=== PATIENT | female | born 2000 | race Two or more races ===

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

== ENCOUNTER 2018-01-27 23:59 | Emergency (ER) | payer MEDICAID | END 2018-01-28 01:50 | disposition left against medical advice (07) | LOC: ER 23:59 | DX: Z53.21 Procedure and treatment not carried out due to patient leaving prior to being seen by health care provider (principal) ==

== ENCOUNTER 2018-01-28 09:35 | Emergency (ER) | payer MEDICAID ==
[2018-01-28] MEDS ORDERED: ACETAMINOPHEN SOLN 325 MG/10.15 ML UDCUP PO ONE (10:09)
[2018-01-28] MEDS ORDERED: KETOROLAC TROMETHAMINE INJ/PF 30 MG/1 ML SDV IV ONE (10:19)
[2018-01-28] MEDS ORDERED: NORMAL SALINE 1000 ML 1,000 ML IV ONE (10:19)
[2018-01-28] MEDS ORDERED: DEXAMETHASONE SOD PHOS INJ 10 MG/1 ML VIAL IV ONE (10:19)
--- NOTE | 2018-01-28 10:20 | ER Document Report ---
HPI - HPI Patient complains to provider of: Fever, sore throat Onset: Other - 3 days Onset/Duration: Persistent Quality of pain: Achy Pain Level: 2 Context: Patient presents complaining of fever body aches sore throat and ear pain. Patient does report mild cough. Patient denies any nausea vomiting or diarrhea. Patient complains of sore throat and states she has not been drinking as much due to pain. Associated Symptoms: Body/muscle aches, Chills, Nonproductive cough, Earache, Fever, Sore throat. denies: Nausea, Vomiting Exacerbated by: Denies Relieved by: Denies Similar symptoms previously: No Recently seen / treated by doctor: No - ROS ROS below otherwise negative: Yes Systems Reviewed and Negative: Yes All other systems reviewed and negative - CONSTITUTIONAL Constitutional: REPORTS: Fever, Chills - EENT EENT: REPORTS: Sore Throat - x 3 days, Ear Pain - NEURO Neurology: REPORTS: Headache - r/t sinus pressure. DENIES: Weakness, Vision blurred, Dizzinesss / Vertigo - RESPIRATORY Respiratory: REPORTS: Coughing - x 3 days - GASTROINTESTINAL Gastrointestinal: DENIES: Abdominal Pain, Black / Bloody Stools - URINARY Urinary: DENIES: Dysuria, Urgency, Frequency - REPRODUCTIVE Reproductive: DENIES: : - MUSCULOSKELETAL Musculoskeletal: REPORTS: Extremity pain - generalized body - DERM Skin Color: Normal Skin Problems: None Past Medical History - General Information source: Patient - Social History Smoking Status: Current Every Day Smoker Chew tobacco use (# tins/day): No Smoking Education Provided: Yes Frequency of alcohol use: Social Drug Abuse: None Occupation: None Lives with: Family Family History: Reviewed & Not Pertinent Patient has suicidal ideation: No Patient has homicidal ideation: No Neurological Medical History: Reports: Hx Seizures Renal/ Medical History: Denies: Hx Peritoneal Dialysis Musculoskeletal Medical History: Reports Hx Musculoskeletal Trauma - right arm and left leg Psychiatric Medical History: Reports: Hx Bipolar Disorder Traumatic Medical History: Reports: Hx Fractures Past Surgical History: Reports: Hx Orthopedic Surgery - arm and leg - Immunizations Immunizations up to date: Yes Hx Diphtheria, Pertussis, Tetanus Vaccination: Yes Vertical Provider Document - CONSTITUTIONAL Agree With Documented VS: Yes Exam Limitations: No Limitations General Appearance: WD/WN, No Apparent Distress - INFECTION CONTROL TRAVEL OUTSIDE OF THE [place] IN LAST 30 DAYS: No - HEENT HEENT: Atraumatic, Normocephalic, Pharyngeal Tenderness, Pharyngeal Erythema. negative: Pharyngeal Exudate - NECK Neck: Lymphadenopathy-Left, Lymphadenopathy-Right - RESPIRATORY Respiratory: Breath Sounds Normal, No Respiratory Distress, Chest Non-Tender - CARDIOVASCULAR Cardiovascular: Regular Rhythm, No Murmur, Tachycardia - GI/ABDOMEN Gastrointestinal: Abdomen Soft - BACK Back: Normal Inspection - MUSCULOSKELETAL/EXTREMETIES Musculoskeletal/Extremeties: MAEW, FROM - NEURO Level of Consciousness: Awake, Alert, Appropriate Motor/Sensory: No Motor Deficit - DERM Integumentary: Warm, Dry, No Rash Course - Re-evaluation Re-evalutation: 01/28/18 11:57 Patient with positive strep pharyngitis, 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 Vital signs normalized, no tachycardia at this time. Good return precautions given. - Laboratory Laboratory results interpreted by me: 01/28/18 18:35 Labs- Entire Visit 01/28/18 09:55 Group A Strep Rapid POSITIVE Discharge - Discharge Clinical Impression: Strep throat Fever Qualifiers: Fever type: unspecified Qualified Code(s): R50.9 - Fever, unspecified Condition: Stable Disposition: HOME, SELF-CARE Instructions: Clindamycin ([facility]), Fever ([facility]), Intravenous (IV) Fluids ([facility]), Strep Throat ([facility]) Additional Instructions: Return immediately for any new or worsening symptoms Followup with your primary care provider, call tomorrow to make a followup appointment Increase oral fluids and stay well-hydrated Prescriptions: Clindamycin HCl [Cleocin Hcl] 300 mg PO QID #28 capsule Naproxen [Naprosyn 250 Nmg Tablet] 1 tab PO BID #14 tablet Forms: Smoking Cessation Education Referrals: LANA LITTLEJOHN DO [Primary Care Provider] - Follow up as needed
[2018-01-28 11:50] VITALS: BP 132/107
[2018-01-28] MEDS ORDERED: CLINDAMYCIN HCL 150 MG CAPSULE PO ONE (11:57)
[2018-01-28] MEDS ORDERED: FLUCONAZOLE 100 MG TABLET PO ONE (12:20)
== END 2018-01-28 12:32 | disposition home or self-care (01) ==
LOC: ER 09:35
DX: J02.0 Streptococcal pharyngitis (principal); R50.9 Fever, unspecified; M79.10 Myalgia, unspecified site; H92.09 Otalgia, unspecified ear; R05 Cough; F17.200 Nicotine dependence, unspecified, uncomplicated
CPT/HCPCS: 99283; 96361; 96374; 96375; 87880; J3490 ×3; J1885; J7030; J1100

== ENCOUNTER 2018-04-21 00:02 | Emergency (ER) | payer MEDICAID ==
[2018-04-21 00:57] VITALS: BP 112/60
--- NOTE | 2018-04-21 02:43 | ER Document Report ---
ED General - General Chief Complaint: Skin Sore(s) Stated Complaint: SKIN PROBLEM Time Seen by Provider: 04/21/18 02:32 Mode of Arrival: Ambulatory Information source: Patient TRAVEL OUTSIDE OF THE [place] IN LAST 30 DAYS: No - Related Data Allergies/Adverse Reactions: amoxicillin trihydrate [From Augmentin] Allergy (Verified 01/28/18 09:37) unk clarithromycin [From Biaxin] Allergy (Verified 01/28/18 09:37) unk Potassium Clavulanate * [From Augmentin] Allergy (Verified 01/28/18 09:37) unk Past Medical History - Social History Smoking Status: Unknown if Ever Smoked Family History: Reviewed & Not Pertinent Patient has suicidal ideation: No Patient has homicidal ideation: No Neurological Medical History: Reports: Hx Seizures Renal/ Medical History: Denies: Hx Peritoneal Dialysis Musculoskeletal Medical History: Reports Hx Musculoskeletal Trauma - right arm and left leg Psychiatric Medical History: Reports: Hx Bipolar Disorder Traumatic Medical History: Reports: Hx Fractures Past Surgical History: Reports: Hx Orthopedic Surgery - arm and leg - Immunizations Immunizations up to date: Yes Hx Diphtheria, Pertussis, Tetanus Vaccination: Yes Physical Exam - Vital signs Vitals: Temp Pulse Resp BP Pulse Ox 97.3 F 68 16 112/60 100 04/21/18 00:55 04/21/18 00:55 04/21/18 00:55 04/21/18 00:55 04/21/18 00:55 Course - Vital Signs Vital signs: Temp Pulse Resp BP Pulse Ox 97.3 F 68 16 112/60 100 04/21/18 00:55 04/21/18 00:55 04/21/18 00:55 04/21/18 00:55 04/21/18 00:55 Discharge - Discharge Clinical Impression: Chemical burn, Cold sore Condition: Good Disposition: HOME, SELF-CARE Instructions: [place] ([facility]), Soap Cleansing ([facility]) Prescriptions: Famciclovir [Famvir] 500 mg PO TID #15 tablet Forms: Return to School Referrals: LANA LITTLEJOHN DO [Primary Care Provider] - Follow up as needed
== END 2018-04-21 03:16 | disposition home or self-care (01) ==
LOC: ER 00:02
DX: T49.0X1A Poisoning by local antifungal, anti-infective and anti-inflammatory drugs, accidental (unintentional), initial encounter (principal); T28.5XXA Corrosion of mouth and pharynx, initial encounter; L98.9 Disorder of the skin and subcutaneous tissue, unspecified; B00.1 Herpesviral vesicular dermatitis
CPT/HCPCS: 99283

== ENCOUNTER 2018-04-29 18:43 | Emergency (ER) | payer MEDICAID ==
[2018-04-29 19:32] VITALS: BP 101/66
== END 2018-04-29 19:45 | disposition left against medical advice (07) ==
LOC: ER 18:43
DX: Z53.21 Procedure and treatment not carried out due to patient leaving prior to being seen by health care provider (principal)

== ENCOUNTER 2018-04-29 23:56 | Inpatient (IN) | payer MEDICAID ==
[2018-04-30] MEDS ORDERED: ONDANSETRON HCL INJ/PF 4 MG/2 ML SDV IV ONE (01:15)
[2018-04-30 02:02] LABS: HEMOGLOBIN 8.5 g/dL (12.0-15.5); MEAN CORPUSCULAR HGB CONC 30.2 g/dL (32.0-36.0); PLATELET COUNT 286 10^3/uL (150-450); RED CELL DISTRIBUTION WIDTH 16.9 % (11.5-14.0)
[2018-04-30 02:17] LABS: ALANINE AMINOTRANSFERASE 18 U/L (9-52); ALBUMIN 4.9 g/dL (3.5-5.0); ALKALINE PHOSPHATASE 62 U/L (38-126); ANION GAP 15 (5-19); ASPARTATE AMINO TRANSFERASE 18 U/L (14-36); BILIRUBIN,DIRECT 0.2 mg/dL (0.0-0.4); BILIRUBIN,TOTAL 0.7 mg/dL (0.2-1.3); BLOOD UREA NITROGEN 6 mg/dL (7-20); CARBON DIOXIDE 16 mmol/L (22-30); CHLORIDE 113 mmol/L (98-107); GLUCOSE 117 mg/dL (75-110); POTASSIUM 3.7 mmol/L (3.6-5.0); SODIUM 144.2 mmol/L (137-145); TOTAL PROTEIN 7.6 g/dL (6.3-8.2)
[2018-04-30 02:31] LABS: ABSOLUTE LYMPHOCYTES# (MANUAL) 0.9 10^3/uL (0.5-4.7); ABSOLUTE MONOCYTES # (MANUAL) 0.4 10^3/uL (0.1-1.4); ABSOLUTE NEUTROPHILS# (MANUAL) 6.6 10^3/uL (1.7-8.2); BASOPHILS % (MANUAL) 0 % (0-2); EOSINOPHILS % (MANUAL) 1 % (0-6); LYMPHOCYTES % (MANUAL) 11 % (13-45); MONOCYTES % (MANUAL) 5 % (3-13); POLYCHROMASIA SLIGHT; SEGMENTED NEUTROPHILS % (MAN) 83 % (42-78); TOTAL CELLS COUNTED 100; TOXIC GRANULATION 1+
[2018-04-30 02:32] LABS: ANISOCYTOSIS 1+; BURR CELLS 2+; HELMET CELLS SLIGHT; OVALOCYTES 1+; PLATELET CLUMPS PRESENT; PLATELET COMMENT ADEQUATE; PLATELET LARGE PRESENT; POIKILOCYTOSIS 2+; SCHISTOCYTES 1+
[2018-04-30 02:33] LABS: MEAN CORPUSCULAR VOLUME 60 fl (80-97)
[2018-04-30 02:40] LABS: APPEARANCE,URINE CLOUDY; BILIRUBIN,URINE NEGATIVE (NEGATIVE); COLOR,URINE YELLOW; GLUCOSE, URINE NEGATIVE (NEGATIVE); KETONES,URINE 80 mg/dL (NEGATIVE); LEUKOCYTE ESTERASE,URINE MODERATE (NEGATIVE); NITRITE,URINE NEGATIVE (NEGATIVE); PROTEIN,URINE >=500 mg/dL (NEGATIVE); URINE SPECIFIC GRAVITY 1.026; UROBILINOGEN,URINE NEGATIVE mg/dL (<2.0)
[2018-04-30] MEDS ORDERED: PROMETHAZINE HCL INJ 25 MG/1 ML VIAL IM ONE (02:58)
[2018-04-30] MEDS ORDERED: RINGERS SOLUTION,LACTATED 1,000 ML IV ONE (02:58)
[2018-04-30] MEDS ORDERED: CEFTRIAXONE INJ 1000 MG VIAL IV ONE (02:59)
--- NOTE | 2018-04-30 03:22 | ER Document Report ---
ED General - General Chief Complaint: Abdominal Pain Stated Complaint: ABDOMINAL PAIN,NAUSEA,VOMITING Time Seen by Provider: 04/30/18 02:50 Notes: Patient is a 18-year-old female presents with abdominal pain and vomiting. She says that she started having dull pain earlier and then followed with vomiting. She says that her pain is related to ruptured ovarian cyst. I asked her how she knows for sure is related to ruptured ovarian cyst and she says "because I know". She says the pain is a burning type pain going up and down the central p ortion of her abdomen. She says the pain is improved sniffily but she still very nauseous. She denies any marijuana use. No drug use. No alcohol use. No fevers. No dysuria. No diarrhea. No blood in her stools. No other complaints at this time. TRAVEL OUTSIDE OF THE [place] IN LAST 30 DAYS: No - Related Data Allergies/Adverse Reactions: No Known Allergies Allergy (Unverified 04/29/18 18:51) Past Medical History - Social History Smoking Status: Never Smoker Frequency of alcohol use: None Drug Abuse: None Family History: Reviewed & Not Pertinent Neurological Medical History: Reports: Hx Seizures Renal/ Medical History: Denies: Hx Peritoneal Dialysis Musculoskeletal Medical History: Reports Hx Musculoskeletal Trauma - right arm and left leg Psychiatric Medical History: Reports: Hx Bipolar Disorder Traumatic Medical History: Reports: Hx Fractures Past Surgical History: Reports: Hx Orthopedic Surgery - arm and leg - Immunizations Immunizations up to date: Yes Hx Diphtheria, Pertussis, Tetanus Vaccination: Yes Review of Systems - Review of Systems Notes: My Normal Review Basic REVIEW OF SYSTEMS: CONSTITUTIONAL : Denies fever, chills, or sweats. Denies recent illness. EENT: Denies eye, ear, throat, or mouth pain or symptoms. Denies nasal or sinus congestion. RESPIRATORY: Denies cough, cold, or chest congestion. Denies shortness of breath, difficulty breathing, or wheezing. GASTROINTESTINAL: Mid abdominal pain with vomiting. GENITOURINARY: Denies difficulty urinating, painful urination, burning, frequency, or blood in urine. FEMALE GENITOURINARY: Denies vaginal bleeding, abnormal or irregular periods. LMP: MUSCULOSKELETAL: Denies neck or back pain or joint pain or swelling. SKIN: Denies rash or skin lesions. NEUROLOGICAL: Denies altered mental status or loss of consciousness. Denies headache. Denies weakness or paralysis or loss of use of either side. Denies problems with gait or speech. Denies sensory or motor loss. ALL OTHER SYSTEMS REVIEWED AND NEGATIVE. Physical Exam - Vital signs Vitals: Temp Pulse Resp BP Pulse Ox 98.9 F 75 18 128/66 H 100 04/29/18 23:56 04/29/18 23:56 04/29/18 23:56 04/29/18 23:56 04/29/18 23:56 - Notes Notes: General Appearance: Well nourished, alert, cooperative, no acute distress, no obvious discomfort. Vitals: reviewed, See vital signs table. Head: no swelling or tenderness to the head Eyes: PERRL, EOMI, Conjuctiva clear Mouth: No decreasd moisture Lungs: No wheezing, No rales, No rhonci, No accessory muscle use, good air exchange bilaterally. Heart: Normal rate, Regular rythm, No murmur, no rub Abdomen: Normal BS, soft, No rigidity, is very hard to get a good exam on the p atient. She says that her pain is improved however she would not let me touch her abdomen. Every time I go to touch her abdomen she grabs my hand and says it will hurt. I am eventually able to push on her abdomen. She yells at me before my hand even touches her abdomen is really difficult to tell how much pain she has. Abdomen is very soft and not rigid. Extremities: strength 5/5 in all extremities, good pulses in all extremities, no swelling or tenderness in the extremities, no edema. Skin: warm, dry, appropriate color, no rash Neuro: speech clear, oriented x 3, normal affect, responds appropriately to questions. Course - Re-evaluation Re-evalutation: 04/30/18 03:59 On reevaluation patient is feeling much improved after the Phenergan. We will give her another 500 mL's lactated Ringer's to help fully rehydrate her being does suspect some significant dehydration due to her vomiting based on her metabolic acidosis. Patient is agreeable to this. 04/30/18 05:13 I went to discharge the patient. Should she start to move around in bed she started get very nauseous again and started to dry heaves and gagging again. Fortunately patient's nausea is not under control as she is feeling perfectly still. I suspect that she may have cyclic vomiting syndrome from marijuana use. Her urine shows some signs of infection but this could just be contaminant from her being on her menstrual period. I still cover in case because there is a significant white blood cells. I will send her urine for culture. She has sign ificant amount of metabolic acidosis on chemistry panel and therefore I do not feel comfortable sending her home when she still cannot taken p.o. fluids. Will contact hospitalist for consideration for admission. 04/30/18 06:31 Spoke to the hospitalist, Dr. Petersen, agrees to evaluate the patient for admission. Dictation of this chart was performed using voice recognition software; therefore, there may be some unintended grammatical errors. - Vital Signs Vital signs: Temp Pulse Resp BP Pulse Ox 98.9 F 75 20 108/72 100 04/29/18 23:56 04/29/18 23:56 04/30/18 06:00 04/30/18 05:01 04/30/18 06:00 - Laboratory Result Diagrams: 04/30/18 01:45 04/30/18 01:45 Laboratory results interpreted by me: 04/30/18 04/30/18 04/30/18 01:45 01:45 02:15 Hgb 8.5 L Hct 28.0 L MCV 60 L MCH 18.0 L MCHC 30.2 L RDW 16.9 H Seg Neuts % (Manual) 83 H Lymphocytes % (Manual) 11 L Chloride 113 H Carbon Dioxide 16 L BUN 6 L Glucose 117 H Urine Protein >=500 H Urine Ketones 80 H Urine Blood LARGE H Ur Leukocyte Esterase MODERATE H Discharge - Discharge Clinical Impression: Metabolic acidosis Intractable vomiting Qualifiers: Vomiting type: cyclical vomiting Nausea presence: with nausea Qualified Code(s): G43.A1 - Cyclical vomiting, intractable Condition: Stable Disposition: ADMITTED OBSERVATION Admitting Provider: Hospitalist Unit Admitted: Medical Floor
[2018-04-30 03:49] LABS: URINE AMPHETAMINES SCREEN NEGATIVE; URINE BARBITURATES SCREEN NEGATIVE; URINE BENZODIAZEPINES SCREEN NEGATIVE; URINE COCAINE SCREEN NEGATIVE; URINE MARIJUANA (THC) SCREEN UNCONFIRMED POSITIVE; URINE METHADONE SCREEN NEGATIVE; URINE PHENCYCLIDINE SCREEN NEGATIVE
[2018-04-30] MEDS ORDERED: RINGERS SOLUTION,LACTATED 500 ML IV ONE (03:58)
[2018-04-30] MEDS ORDERED: NORMAL SALINE 500 ML IV ONE (03:58)
[2018-04-30] MEDS ORDERED: METOCLOPRAMIDE HCL INJ/PF 10 MG/2 ML SDV IV ONE (05:09)
--- NOTE | 2018-04-30 09:21 | EKG REPORT ---
SEVERITY:- BORDERLINE ECG - SINUS RHYTHM SHORT NM INTERVAL, ACCELERATED AV CONDUCTION MINIMAL ST DEPRESSION, INFERIOR LEADS BORDERLINE PROLONGED QT INTERVAL : Confirmed by: Tk Gresham 30-Apr-2018 09:21:23
[2018-04-30] MEDS ORDERED: ONDANSETRON 4 MG TAB.RAPDIS PO PRN (11:31)
[2018-04-30] MEDS ORDERED: MAGNESIUM HYDROXIDE SUSP 30 ML UDCUP PO PRN (11:31)
[2018-04-30] MEDS ORDERED: TEMAZEPAM 7.5 MG CAPSULE PO PRN (11:31)
[2018-04-30] MEDS ORDERED: ACETAMINOPHEN 325 MG TABLET PO PRN (11:31)
[2018-04-30] MEDS ORDERED: IPRATROPIUM/ALBUTEROL 0.5-2.5 MG/3 ML AMPUL NEB PRN (11:31)
--- NOTE | 2018-04-30 11:52 | PDOC H&P ---
History of Present Illness Admission Date/PCP: 04/30/18 06:37 Patient complains of: Nausea and vomiting History of Present Illness: SANJAY BUTLER is a 18 year old female Patient presents emergency room with complaints of intractable nausea and vomiting. She also complained of abdominal pain. Patient thinks that she may have a ruptured ovarian cyst she says she has had one before. She is noted to have hematuria however patient is currently on her.. She denies any prior history of kidney stones. She denies any fever or diarrhea chest pain or any other pertinent symptoms. Patient also found to have positive marijuana on her drug screen Past Medical History Medical History: None Neurological Medical History: Reports: Seizures Psychiatric Medical History: Reports: Bipolar Disorder Past Surgical History Past Surgical History: Reports: Orthopedic Surgery - arm and leg Social History Information Source: Patient Smoking Status: Never Smoker Frequency of Alcohol Use: Rare Drugs: Marijuana - Advance Directive Resuscitation Status: Full Code Family History Family History: Reviewed & Not Pertinent Parental Family History Reviewed: Yes Children Family History Reviewed: Yes Sibling(s) Family History Reviewed.: Yes Medication/Allergy Home Medications: No Home Medications 04/30/18 Allergies/Adverse Reactions: No Known Allergies Allergy (Unverified 04/29/18 18:51) Review of Systems All systems: reviewed and no additional remarkable complaints except as stated Physical Exam Vital Signs: Temp Pulse Resp BP Pulse Ox 99.3 F 59 L 18 102/48 L 96 04/30/18 09:01 04/30/18 09:01 04/30/18 09:01 04/30/18 09:01 04/30/18 09:01 Intake & Output 04/29/18 04/30/18 05/01/18 06:59 06:59 06:59 Intake Total 1500 Balance 1500 Weight 43.091 kg 41.4 kg General appearance: PRESENT: no acute distress, thin Head exam: PRESENT: atraumatic, normocephalic Eye exam: PRESENT: conjunctiva pink, EOMI, PERRLA. ABSENT: scleral icterus Ear exam: PRESENT: normal external ear exam Mouth exam: PRESENT: moist, tongue midline Neck exam: ABSENT: carotid bruit, JVD, lymphadenopathy, thyromegaly Respiratory exam: PRESENT: clear to auscultation garret. ABSENT: rales, rhonchi, wheezes Cardiovascular exam: PRESENT: RRR. ABSENT: diastolic murmur, rubs, systolic murmur Pulses: PRESENT: normal dorsalis pedis pul Vascular exam: PRESENT: normal capillary refill GI/Abdominal exam: PRESENT: normal bowel sounds, soft. ABSENT: distended, guarding, mass, organolmegaly, rebound, tenderness Rectal exam: PRESENT: deferred Extremities exam: PRESENT: full ROM. ABSENT: calf tenderness, clubbing, pedal edema Neurological exam: PRESENT: alert, awake, oriented to person, oriented to place, oriented to time, oriented to situation, CN II-XII grossly intact. ABSENT: motor sensory deficit Psychiatric exam: PRESENT: appropriate affect, normal mood. ABSENT: homicidal ideation, suicidal ideation Skin exam: PRESENT: dry, intact, warm. ABSENT: cyanosis, rash Results Laboratory Results: 04/30/18 01:45 04/30/18 01:45 04/30/18 04/30/18 04/30/18 01:45 01:45 02:15 WBC 8.0 RBC 4.70 Hgb 8.5 L Hct 28.0 L MCV 60 L MCH 18.0 L MCHC 30.2 L RDW 16.9 H Plt Count 286 Seg Neutrophils % Not Reportable Lymphocytes % Not Reportable Monocytes % Not Reportable Eosinophils % Not Reportable Basophils % Not Reportable Absolute Neutrophils Not Reportable Absolute Lymphocytes Not Reportable Absolute Monocytes Not Reportable Absolute Eosinophils Not Reportable Absolute Basophils Not Reportable Sodium 144.2 Potassium 3.7 Chloride 113 H Carbon Dioxide 16 L Anion Gap 15 BUN 6 L Creatinine 0.55 Est GFR ( Amer) > 60 Est GFR (Non-Af Amer) > 60 Glucose 117 H Calcium 10.0 Total Bilirubin 0.7 AST 18 ALT 18 Alkaline Phosphatase 62 Total Protein 7.6 Albumin 4.9 Urine Color YELLOW Urine Appearance CLOUDY Urine pH 8.0 Ur Specific [place] 1.026 Urine Protein >=500 H Urine Glucose (UA) NEGATIVE Urine Ketones 80 H Urine Blood LARGE H Urine Nitrite NEGATIVE Ur Leukocyte Esterase MODERATE H Urine WBC (Auto) 21 Urine RBC (Auto) >182 Assessment & Plan - Diagnosis (1) Microcytic anemia Is this a current diagnosis for this admission?: Yes Plan: Obtain iron studies (2) Hematuria Qualifiers: Hematuria type: unspecified type Qualified Code(s): R31.9 - Hematuria, unspecified (3) Intractable vomiting Qualifiers: Vomiting type: cyclical vomiting Nausea presence: with nausea Qualified Code(s): G43.A1 - Cyclical vomiting, intractable Is this a current diagnosis for this admission?: Yes Plan: Possibly from THC use. Anti-emetics, hot shower and abstinence (4) Metabolic acidosis Is this a current diagnosis for this admission?: Yes (5) Protein-calorie malnutrition, severe Is this a current diagnosis for this admission?: Yes Plan: Patient is severely underweight. She will need nutrition evaluation and encouragement to eat - Time Time Spent: 50 to 70 Minutes Critical Time spent with patient: Less than 15 minutes Medications reviewed and adjusted accordingly: Yes Anticipated discharge: Home Within: within 24 hours - Inpatient Certification Based on my medical assessment, after consideration of the patient's comorbidities, presenting symptoms, or acuity I expect that the services needed warrant INPATIENT care.: Yes Medical Necessity: Need For IV Fluids
[2018-04-30] MEDS: RINGERS SOLUTION,LACTATED 1,000 ML IV PRN (12:41)
[2018-04-30] MEDS: FAMOTIDINE INJ/PF 20 MG/2 ML SDV IV SCH ×2 (12:41→21:54)
[2018-04-30] MEDS: ENOXAPARIN SODIUM INJ 40 MG/0.4 ML DISP.SYRIN SUBCUT SCH (14:00)
[2018-04-30] MEDS ORDERED: PROMETHAZINE HCL 25 MG TABLET PO ONE (20:45)
[2018-05-01] MEDS: RINGERS SOLUTION,LACTATED 1,000 ML IV PRN (05:32)
[2018-05-01 07:11] LABS: ABSOLUTE RETICS # 0.067 10^6/uL (0.028-0.122); HEMATOCRIT 24.8 % (36.0-47.0); MEAN CORPUSCULAR HEMOGLOBIN 18.2 pg (27.0-33.4); MEAN CORPUSCULAR VOLUME 59 fl (80-97); PLATELET COUNT 259 10^3/uL (150-450); RED BLOOD COUNT 4.23 10^6/uL (3.72-5.28); RED CELL DISTRIBUTION WIDTH 17.4 % (11.5-14.0); RETICULOCYTE COUNT (AUTO) 1.58 % (0.66-2.85)
[2018-05-01 07:30] LABS: ANION GAP 10 (5-19); BLOOD UREA NITROGEN 6 mg/dL (7-20); CALCIUM 9.3 mg/dL (8.4-10.2); CARBON DIOXIDE 21 mmol/L (22-30); CHLORIDE 107 mmol/L (98-107); GLUCOSE 91 mg/dL (75-110); IRON(TIBC) 13.2 ug/dL (37-170); POTASSIUM 3.9 mmol/L (3.6-5.0); SODIUM 138.1 mmol/L (137-145)
[2018-05-01 07:59] LABS: HEMOGLOBIN 7.7 g/dL (12.0-15.5)
[2018-05-01 08:05] LABS: FERRITIN 3.78 ng/mL (6.2-137.0)
[2018-05-01 08:45] LABS: FOLATE 7.88 ng/mL (>2.76)
--- NOTE | 2018-05-01 09:18 | RADIOLOGY REPORT (SQ) ---
EXAM DESCRIPTION: U/S NON-OB PELVIS W/O DOP COMPLETED DATE/TIME: 05/01/2018 7:50 am REASON FOR STUDY: ? ovarian cyst, abdominal pain COMPARISON: None. TECHNIQUE: Dynamic and static grayscale images acquired of the pelvis via transabdominal approach an d recorded on PACS. Additional selected color Doppler and spectral images recorded. LIMITATIONS: Midline bowel gas, limited patient cooperation FINDINGS: UTERUS: Contour normal. No mass. Uterus is 7 x 5 x 4 cm in size ENDOMETRIAL STRIPE: No focal or generalized thickening. No masses. Endometrium 5 mm in thickness CERVIX: No nabothian cysts. Closed, 3 cm in length. RIGHT OVARY AND DOPPLER: Normal size, 2.8 x 2.6 x 2.2 cm. No worrisome masses. Normal arterial vascul ar flow without evidence for torsion. LEFT OVARY AND DOPPLER: Not visualized due to limited acoustic window from pelvic bowel gas. FREE FLUID: None noted. OTHER: No other significant finding. IMPRESSION: NONVISUALIZATION LEFT OVARY AND ADNEXA. OTHERWISE, UNREMARKABLE PELVIC ULTRASOUND BY TRANSABDOMINAL TECHNIQUE. TECHNICAL DOCUMENTATION: JOB ID: [id number] [employer]- All Rights Reserved Reading location - IP/workstation name: [email or web address]
[2018-05-01] MEDS ORDERED: RINGERS SOLUTION,LACTATED 1,000 ML IV PRN (09:20)
[2018-05-01] MEDS ORDERED: IRON SUCROSE COMPLEX INJ/PF 100 MG/5 ML SDV IV ONE (09:21)
[2018-05-01] MEDS: FAMOTIDINE INJ/PF 20 MG/2 ML SDV IV SCH ×2 (10:35→22:20)
[2018-05-01] MEDS: PROMETHAZINE HCL INJ 25 MG/1 ML VIAL IV PRN (10:35)
[2018-05-01] MEDS: ENOXAPARIN SODIUM INJ 40 MG/0.4 ML DISP.SYRIN SUBCUT SCH ×2 (10:36→11:04)
[2018-05-01] MEDS: CEFTRIAXONE 1 GM/D5W RTU 1 GM/50 ML RTUPB IV SCH (10:42)
[2018-05-01] MEDS ORDERED: IRON SUCROSE COMPLEX 200 MG in NORMAL SALINE 100 ML IV ONE (12:00)
--- NOTE | 2018-05-01 13:48 | PDOC PROGRESS REPORT ---
Subjective Progress Note for:: 05/01/18 Subjective:: Patient still having some occasional vomiting. She denies any dysuria or frequency. Urine culture noted to be positive yielding gram-negative rods. Patient denies any vaginal discharge. Reason For Visit: INTRACTABLE NAUSEA AND VOMITING,DEHYDRATION Physical Exam Vital Signs: Temp Pulse Resp BP Pulse Ox 98.5 F 68 12 110/66 100 05/01/18 08:36 05/01/18 12:30 05/01/18 12:30 05/01/18 08:36 05/01/18 12:30 Intake & Output 04/30/18 05/01/18 05/02/18 06:59 06:59 06:59 Intake Total 1500 1000 Balance 1500 1000 Weight 43.091 kg 40.6 kg General appearance: PRESENT: no acute distress, thin Head exam: PRESENT: atraumatic, normocephalic Eye exam: PRESENT: conjunctiva pink, EOMI, PERRLA. ABSENT: scleral icterus Ear exam: PRESENT: normal external ear exam Mouth exam: PRESENT: moist, tongue midline Neck exam: ABSENT: carotid bruit, JVD, lymphadenopathy, thyromegaly Respiratory exam: PRESENT: clear to auscultation garret. ABSENT: rales, rhonchi, wheezes Cardiovascular exam: PRESENT: RRR. ABSENT: diastolic murmur, rubs, systolic mur mur Pulses: PRESENT: normal dorsalis pedis pul Vascular exam: PRESENT: normal capillary refill GI/Abdominal exam: PRESENT: normal bowel sounds, soft. ABSENT: distended, guarding, mass, organolmegaly, rebound, tenderness Rectal exam: PRESENT: deferred Extremities exam: PRESENT: full ROM. ABSENT: calf tenderness, clubbing, pedal edema Neurological exam: PRESENT: alert, awake, oriented to person, oriented to place, oriented to time, oriented to situation, CN II-XII grossly intact. ABSENT: motor sensory deficit Psychiatric exam: PRESENT: appropriate affect, normal mood. ABSENT: homicidal ideation, suicidal ideation Skin exam: PRESENT: dry, intact, warm. ABSENT: cyanosis, rash Results Laboratory Results: 05/01/18 06:32 05/01/18 06:32 05/01/18 05/01/18 06:32 06:32 WBC 8.0 RBC 4.23 Hgb 7.7 L Hct 24.8 L MCV 59 L MCH 18.2 L MCHC 31.0 L RDW 17.4 H Plt Count 259 Retic Count (auto) 1.58 Absolute Retic 0.067 Sodium 138.1 Potassium 3.9 Chloride 107 Carbon Dioxide 21 L Anion Gap 10 BUN 6 L Creatinine 0.48 L Est GFR ( Amer) > 60 Est GFR (Non-Af Amer) > 60 Glucose 91 Calcium 9.3 Iron 13.2 L TIBC 469 H % Saturation 3 Ferritin 3.78 L Vitamin B12 275.0 Folate 7.88 04/30/18 02:15 Clean Catch Midstream Urine Culture - Final Mixed Urogenital Mary Impressions: Pelvis Ultrasound 05/01/18 00:00 IMPRESSION: NONVISUALIZATION LEFT OVARY AND ADNEXA. OTHERWISE, UNREMARKABLE PELVIC ULTRASOUND BY TRANSABDOMINAL TECHNIQUE. Assessment & Plan - Diagnosis (1) Microcytic anemia Is this a current diagnosis for this admission?: Yes Plan: Iron deficiency. We will give IV iron patient really needs outpatient follow-up with [facility]. She does have what appears to be polymenorrhea however I think she needs subsequent evaluation as outpatient. Pelvic sonogram as noted above. (2) Hematuria Qualifiers: Hematuria type: unspecified type Qualified Code(s): R31.9 - Hematuria, unspecified Is this a current diagnosis for this admission?: Yes Plan: Secondary to menstruation (3) Intractable vomiting Qualifiers: Vomiting type: cyclical vomiting Nausea presence: with nausea Qualified Code(s): G43.A1 - Cyclical vomiting, intractable Is this a current diagnosis for this admission?: Yes Plan: Possibly secondary to marijuana use or acute infection (4) Metabolic acidosis Is this a current diagnosis for this admission?: Yes (5) Protein-calorie malnutrition, severe Is this a current diagnosis for this admission?: Yes Plan: Appreciate Dietitian input - Inpatient Certification Based on my medical assessment, after consideration of the patient's comorbidities, presenting symptoms, or acuity I expect that the services needed warrant INPATIENT care.: Yes - Plan Summary Plan Summary: Sonogram reveals nonvisualization of left ovary and adnexa with no other significant findings We will discuss with patient the need for further testing,
[2018-05-02] MEDS: PROMETHAZINE HCL INJ 25 MG/1 ML VIAL IV PRN ×4 (00:47→22:51)
[2018-05-02] MEDS ORDERED: PROMETHAZINE HCL 25 MG TABLET PO PRN (08:25)
[2018-05-02] MEDS: CEFTRIAXONE 1 GM/D5W RTU 1 GM/50 ML RTUPB IV SCH (10:21)
[2018-05-02] MEDS: ENOXAPARIN SODIUM INJ 40 MG/0.4 ML DISP.SYRIN SUBCUT SCH (10:21)
[2018-05-02] MEDS: FAMOTIDINE INJ/PF 20 MG/2 ML SDV IV SCH ×2 (10:21→22:51)
[2018-05-02 15:00] LABS: APPEARANCE,URINE SLIGHTLY-CLOUDY; BILIRUBIN,URINE NEGATIVE (NEGATIVE); COLOR,URINE YELLOW; GLUCOSE, URINE NEGATIVE (NEGATIVE); KETONES,URINE 80 mg/dL (NEGATIVE); LEUKOCYTE ESTERASE,URINE NEGATIVE (NEGATIVE); NITRITE,URINE NEGATIVE (NEGATIVE); PROTEIN,URINE NEGATIVE (NEGATIVE); URINE SPECIFIC GRAVITY 1.018; UROBILINOGEN,URINE NEGATIVE mg/dL (<2.0)
--- NOTE | 2018-05-02 17:41 | PDOC PROGRESS REPORT ---
Subjective Progress Note for:: 05/02/18 Subjective:: Patient still having some occasional vomiting. She denies any dysuria or frequency. Blood culture noted to be positive yielding gram-negative rods. Source is unknown we will repeat blood cultures have been obtained. Repeat urinalysis has also been obtained. Reason For Visit: INTRACTABLE NAUSEA AND VOMITING,DEHYDRATION Physical Exam Vital Signs: Temp Pulse Resp BP Pulse Ox 98 F 81 18 115/67 99 05/02/18 16:34 05/02/18 16:34 05/02/18 16:34 05/02/18 16:34 05/02/18 16:34 Intake & Output 05/01/18 05/02/18 05/03/18 06:59 06:59 06:59 Intake Total 1000 690 50 Output Total 100 Balance 1000 590 50 Weight 40.6 kg 40.6 kg General appearance: PRESENT: no acute distress, thin Head exam: PRESENT: atraumatic, normocephalic Eye exam: PRESENT: conjunctiva pink, EOMI, PERRLA. ABSENT: scleral icterus Ear exam: PRESENT: normal external ear exam Mouth exam: PRESENT: moist, tongue midline Neck exam: ABSENT: carotid bruit, JVD, lymphadenopathy, thyromegaly Respiratory exam: PRESENT: clear to auscultation garret. ABSENT: rales, rhonchi, wheezes Cardiovascular exam: PRESENT: RRR. ABSENT: diastolic murmur, rubs, systolic murmur Pulses: PRESENT: normal dorsalis pedis pul Vascular exam: PRESENT: normal capillary refill GI/Abdominal exam: PRESENT: normal bowel sounds, soft. ABSENT: distended, guarding, mass, organolmegaly, rebound, tenderness Rectal exam: PRESENT: deferred Extremities exam: PRESENT: full ROM. ABSENT: calf tenderness, clubbing, pedal edema Neurological exam: PRESENT: alert, awake, oriented to person, oriented to place, oriented to time, oriented to situation, CN II-XII grossly intact. ABSENT: motor sensory deficit Psychiatric exam: PRESENT: appropriate affect, normal mood. ABSENT: homicidal ideation, suicidal ideation Skin exam: PRESENT: dry, intact, warm. ABSENT: cyanosis, rash Results Laboratory Results: 05/01/18 06:32 05/01/18 06:32 05/02/18 14:30 Urine Color YELLOW Urine Appearance SLIGHTLY-CLOUDY Urine pH 7.0 Ur Specific [place] 1.018 Urine Protein NEGATIVE Urine Glucose (UA) NEGATIVE Urine Ketones 80 H Urine Blood LARGE H Urine Nitrite NEGATIVE Ur Leukocyte Esterase NEGATIVE Urine WBC (Auto) 3 Urine RBC (Auto) >182 Impressions: Pelvis Ultrasound 05/01/18 00:00 IMPRESSION: NONVISUALIZATION LEFT OVARY AND ADNEXA. OTHERWISE, UNREMARKABLE PELVIC ULTRASOUND BY TRANSABDOMINAL TECHNIQUE. Assessment & Plan - Diagnosis (1) Microcytic anemia Is this a current diagnosis for this admission?: Yes (2) Hematuria Qualifiers: Hematuria type: unspecified type Qualified Code(s): R31.9 - Hematuria, unspecified Is this a current diagnosis for this admission?: Yes (3) Intractable vomiting Qualifiers: Vomiting type: cyclical vomiting Nausea presence: with nausea Qualified Code(s): G43.A1 - Cyclical vomiting, intractable Is this a current diagnosis for this admission?: Yes (4) Metabolic acidosis Is this a current diagnosis for this admission?: Yes (5) Protein-calorie malnutrition, severe Is this a current diagnosis for this admission?: Yes (6) Substance abuse Is this a current diagnosis for this admission?: Yes Plan: Mother told being confidence that her daughter likely abuses drugs. She says she is into also the things that she cannot even begin to specify. Drug screen was positive for marijuana only on admission. I will order an HIV test for completeness sake - Time Time Spent with patient: 15-24 minutes Medications reviewed and adjusted accordingly: Yes Anticipated discharge: Home Within: within 72 hours
[2018-05-03] MEDS: PROMETHAZINE HCL INJ 25 MG/1 ML VIAL IV PRN ×3 (08:49→18:30)
--- NOTE | 2018-05-03 10:10 | PDOC PROGRESS REPORT ---
Subjective Progress Note for:: 05/03/18 Subjective:: Patient admitted with intractable nausea and vomiting thought to be secondary to cyclic vomiting from marijuana abuse. Patient has been taking hot showers which she actually says relieves her symptoms and vomiting is improving. She was found to have bacteremia with gram positive rods with full identification still pending. It is unclear if this is a contaminant however patient is currently on ceftriaxone. Repeat blood culture as that is pending. Due to patient's poor nutritional status HIV test was done and that is also negative. Patient is also severely anemic and this may be a combination of nutritional as well as gynecological etiology and we need further workup as outpatient. Pelvic sonogram reveals no significant etiology. Patient denies any pelvic discharge and no pelvic exam has been done but if her symptoms warranted this may be a consideration. If needed patient can also be switched to doxycycline however due to intractable nausea and vomiting she is unable to tolerate this at this time Reason For Visit: INTRACTABLE NAUSEA AND VOMITING,DEHYDRATION Physical Exam Vital Signs: Temp Pulse Resp BP Pulse Ox 98.9 F 77 16 111/75 100 05/02/18 19:58 05/02/18 19:58 05/02/18 19:58 05/02/18 19:58 05/02/18 19:58 Intake & Output 05/02/18 05/03/18 05/04/18 06:59 06:59 06:59 Intake Total 690 50 Output Total 100 Balance 590 50 Weight 40.6 kg General appearance: PRESENT: no acute distress, thin, other - cachectic Head exam: PRESENT: atraumatic, normocephalic Eye exam: PRESENT: conjunctiva pink, EOMI, PERRLA. ABSENT: scleral icterus Ear exam: PRESENT: normal external ear exam Mouth exam: PRESENT: tongue midline Neck exam: ABSENT: carotid bruit, JVD, lymphadenopathy, thyromegaly Respiratory exam: PRESENT: clear to auscultation garret. ABSENT: rales, rhonchi, wheezes Cardiovascular exam: PRESENT: RRR. ABSENT: diastolic murmur, rubs, systolic murmur Pulses: PRESENT: normal dorsalis pedis pul Vascular exam: PRESENT: normal capillary refill GI/Abdominal exam: PRESENT: normal bowel sounds, soft, tenderness - vague LUQ tenderness. ABSENT: distended, guarding, mass, organolmegaly, rebound Rectal exam: PRESENT: deferred Extremities exam: PRESENT: full ROM. ABSENT: calf tenderness, clubbing, pedal edema Neurological exam: PRESENT: alert, awake, oriented to person, oriented to place, oriented to time, oriented to situation, CN II-XII grossly intact. ABSENT: motor sensory deficit Psychiatric exam: PRESENT: normal mood. ABSENT: homicidal ideation, suicidal ideation Skin exam: PRESENT: dry, intact, warm. ABSENT: cyanosis, rash Results Laboratory Results: 05/01/18 06:32 05/01/18 06:32 05/02/18 14:30 Urine Color YELLOW Urine Appearance SLIGHTLY-CLOUDY Urine pH 7.0 Ur Specific Alba 1.018 Urine Protein NEGATIVE Urine Glucose (UA) NEGATIVE Urine Ketones 80 H Urine Blood LARGE H Urine Nitrite NEGATIVE Ur Leukocyte Esterase NEGATIVE Urine WBC (Auto) 3 Urine RBC (Auto) >182 Impressions: Pelvis Ultrasound 05/01/18 00:00 IMPRESSION: NONVISUALIZATION LEFT OVARY AND ADNEXA. OTHERWISE, UNREMARKABLE PELVIC ULTRASOUND BY TRANSABDOMINAL TECHNIQUE. Assessment & Plan - Diagnosis (1) Microcytic anemia Is this a current diagnosis for this admission?: Yes Plan: Iron deficiency. Status post IV dextran. She will need oral iron at discharge and follow-up with [employer] for further evaluation (2) Hematuria Qualifiers: Hematuria type: unspecified type Qualified Code(s): R31.9 - Hematuria, unspecified Is this a current diagnosis for this admission?: Yes Plan: Secondary to menstruation (3) Intractable vomiting Qualifiers: Vomiting type: cyclical vomiting Nausea presence: with nausea Qualified Code(s): G43.A1 - Cyclical vomiting, intractable Is this a current diagnosis for this admission?: Yes Plan: Possibly secondary to marijuana use or acute infection (4) Metabolic acidosis Is this a current diagnosis for this admission?: Yes Plan: Check labs in am (5) Protein-calorie malnutrition, severe Is this a current diagnosis for this admission?: Yes Plan: Appreciate Dietitian input (6) Substance abuse Is this a current diagnosis for this admission?: Yes Plan: Mother told me in confidence that her daughter abuses drugs. She says she is into also the things that she cannot even begin to specify. Drug screen was positive for marijuana only on admission. HIV negative She will benefit from substance abuse counselling - Time Time Spent with patient: 15-24 minutes Medications reviewed and adjusted accordingly: Yes Anticipated discharge: Home Within: within 48 hours - Inpatient Certification Based on my medical assessment, after consideration of the patient's comorbidities, presenting symptoms, or acuity I expect that the services needed warrant INPATIENT care.: Yes Medical Necessity: Need For IV Fluids
[2018-05-03] MEDS: FAMOTIDINE INJ/PF 20 MG/2 ML SDV IV SCH ×2 (12:01→22:31)
[2018-05-03] MEDS: CEFTRIAXONE 1 GM/D5W RTU 1 GM/50 ML RTUPB IV SCH (12:01)
[2018-05-03] MEDS: ENOXAPARIN SODIUM INJ 40 MG/0.4 ML DISP.SYRIN SUBCUT SCH (12:02)
--- NOTE | 2018-05-04 00:19 | XCELERA REPORT ---
[address] [address] Transthoracic Echocardiogram Report Name: SANJAY BUTLER Age: 18 yrs Gender: Female : 2000 Patient Status: Inpatient Patient Location: [address] [place] [address] Study Date: 05/03/2018 05:22 PM Height: 67 in Weight: 89 lb BSA: 1.4 m2 Procedure: A two-dimensional transthoracic echocardiogram with color flow Doppler was performed. Study Quality: Fair. Reason For Study: Bacteremia History: Bacteremia. Ordering Physician: NAZIA DE LA TORRE Performed By: Nam Zhou Interpretation Summary No gross vegetations seen,If Clinical suspicion for endocarditis is high,then RECOMMEND DORA. The left ventricle is normal in size. There is normal left ventricular wall thickness. LV EF is 65% Left ventricular systolic function is normal. Doppler measurements suggest normal left ventricular diastolic function The left ventricular wall motion is normal. There is no thrombus. The right ventricle is normal in size and function. The right atrium is normal. The left atrial size is normal. There is no evidence of mitral valve prolapse. There is no vegetation seen on the mitral valve. There is no mitral valve stenosis. There is no mitral regurgitation noted. There is no aortic valvular vegetation. There is no aortic valve stenosis There is no LVOT obstruction. There is a trace amount of aortic regurgitation There is no tricuspid stenosis. There is no tricuspid valve vegetation. There is a trace amount of tricuspid regurgitation Right ventricular systolic pressure is normal. RVSP is 18 to 23 mm of Hg , with RA mean of 5 to 10. There is no pulmonic valvular stenosis. There is no pulmonic valvular regurgitation. The aortic root is normal size. The inferior vena cava appeared normal and decreased > 50% with respiration (RAP 5-10 mmHg) There is no pericardial effusion. No gross vegetations seen,If Clinical suspicion for endocarditis is high,then RECOMMEND DORA. MMode/2D Measurements & Calculations RVDd: 1.8 cm LVIDd: 5.1 cm FS: 62.5 % Ao root diam: 2.7 cm IVSd: 0.45 cm LVIDs: 1.9 cm EDV(Teich): 123.4 ml Ao root area: 5.7 cm2 LVPWd: 0.49 cm ESV(Teich): 11.3 ml LA dimension: 2.4 cm EF(Teich): 90.8 % LVOT diam: 2.0 cm LVOT area: 3.3 cm2 Doppler Measurements & Calculations MV E max byron: MV P1/2t max byron: Ao V2 max: LV V1 max P.2 cm/sec 124.2 cm/sec 117.4 cm/sec 4.3 mmHg MV A max byron: MV P1/2t: 53.6 msec Ao max PG: LV V1 mean P.5 cm/sec MVA(P1/2t): 4.1 cm2 5.5 mmHg 2.3 mmHg MV E/A: 2.6 MV dec slope: Ao V2 mean: LV V1 max: 75.4 cm/sec 104.1 cm/sec 678.5 cm/sec2 Ao mean PG: LV V1 mean: MV dec time: 0.08 sec 2.6 mmHg 71.6 cm/sec Ao V2 VTI: 23.1 cm LV V1 VTI: 20.2 cm CB(I,D): 2.9 cm2 CB(V,D): 2.9 cm2 SV(LVOT): 66.1 ml PA V2 max: TR max byron: MV P1/2t-pr_phl: 79.9 cm/sec 181.6 cm/sec 53.6 msec PA max P.6 mmHg TR max P.2 mmHg Left Ventricle The left ventricle is normal in size. There is normal left ventricular wall thickness. LV EF is 65%. Left ventricular systolic function is normal. Doppler measurements suggest normal left ventricular diastolic function. The left ventricular wall motion is normal. There is no thrombus. Right Ventricle The right ventricle is normal in size and function. Atria The right atrium is normal. The left atrial size is normal. Mitral Valve There is no evidence of mitral valve prolapse. There is no vegetation seen on the mitral valve. There is no mitral valve stenosis. There is no mitral regurgitation noted. Aortic Valve There is no aortic valvular vegetation. There is no aortic valve stenosis. There is no LVOT obstruction. There is a trace amount of aortic regurgitation. Tricuspid Valve There is no tricuspid valve vegetation. There is no tricuspid stenosis. There is a trace amount of tricuspid regurgitation. Right ventricular systolic pressure is normal. RVSP is 18 to 23 mm of Hg , with RA mean of 5 to 10. Pulmonic Valve There is no pulmonic valvular stenosis. There is no pulmonic valvular regurgitation. Great Vessels The aortic root is normal size. The inferior vena cava appeared normal and decreased > 50% with respiration (RAP 5-10 mmHg). Effusions There is no pericardial effusion. : NAZIA DE LA TORRE > Tina Yancey
[2018-05-04] MEDS: PROMETHAZINE HCL INJ 25 MG/1 ML VIAL IV PRN ×5 (01:03→20:34)
[2018-05-04 07:04] LABS: ABSOLUTE BASOPHILS # (AUTO) 0.1 10^3/uL (0.0-0.2); ABSOLUTE EOSINOPHILS # (AUTO) 0.1 10^3/uL (0.0-0.6); ABSOLUTE LYMPHOCYTES (AUTO) 1.5 10^3/uL (0.5-4.7); ABSOLUTE MONOCYTES (AUTO) 0.8 10^3/uL (0.1-1.4); ABSOLUTE NEUT (AUTO) 3.5 10^3/uL (1.7-8.2); BASOPHILS % (AUTO) 1.1 % (0-2); EOSINOPHILS % (AUTO) 1.3 % (0-6); HEMATOCRIT 25.8 % (36.0-47.0); LYMPHOCYTES % (AUTO) 25.7 % (13-45); MEAN CORPUSCULAR HEMOGLOBIN 18.3 pg (27.0-33.4); MEAN CORPUSCULAR HGB CONC 30.5 g/dL (32.0-36.0); MEAN CORPUSCULAR VOLUME 60 fl (80-97); MONOCYTES % (AUTO) 12.8 % (3-13); PLATELET COUNT 292 10^3/uL (150-450); RED CELL DISTRIBUTION WIDTH 17.3 % (11.5-14.0); SEGMENTED NEUTROPHILS % (AUTO) 59.1 % (42-78); TOTAL CELLS COUNTED % (AUTO) 100 %; WHITE BLOOD COUNT 5.9 10^3/uL (4.0-10.5)
[2018-05-04 07:29] LABS: ANION GAP 12 (5-19); BLOOD UREA NITROGEN 8 mg/dL (7-20); CARBON DIOXIDE 22 mmol/L (22-30); CHLORIDE 105 mmol/L (98-107); GLUCOSE 82 mg/dL (75-110); POTASSIUM 3.7 mmol/L (3.6-5.0); SODIUM 138.7 mmol/L (137-145)
[2018-05-04 08:06] LABS: HEMOGLOBIN 7.9 g/dL (12.0-15.5)
[2018-05-04 08:12] LABS: ANISOCYTOSIS 2+; HYPOCHROMASIA 2+; OVALOCYTES 2+; PLATELET COMMENT ADEQUATE; POIKILOCYTOSIS 2+; POLYCHROMASIA SLIGHT; ROULEAUX SLIGHT
--- NOTE | 2018-05-04 08:24 | PDOC PROGRESS REPORT ---
Subjective Progress Note for:: 05/04/18 Subjective:: Patient admitted with intractable nausea and vomiting thought to be secondary to cyclic vomiting from marijuana abuse. Patient has been taking hot showers which she actually says relieves her symptoms and vomiting is improving. She was found to have bacteremia with gram positive rods with full identification still pending. It is unclear if this is a contaminant however patient is currently on ceftriaxone. Repeat blood culture as that is pending. Due to patient's poor nutritional status HIV test was done and that is also negative. Patient is also severely anemic and this may be a combination of nutritional as well as gynecological etiology and we need further workup as outpatient. Pelvic sonogram reveals no significant etiology. Patient denies any pelvic discharge and no pelvic exam has been done but if her symptoms warranted this may be a consideration. If needed patient can also be switched to doxycycline however due to intractable nausea and vomiting she is unable to tolerate this at this time 05/04/2018-no acute events in the last 24 hours. Patient is afebrile. Echocardiogram shows EF of 65% no suspicion for endocarditis. She is comfortable and sleeping in the bed requesting Phenergan. She is receiving Phenergan every 4 hours. Reason For Visit: INTRACTABLE NAUSEA AND VOMITING,DEHYDRATION Physical Exam Vital Signs: Temp Pulse Resp BP Pulse Ox 98.3 F 65 18 101/51 L 100 05/04/18 00:56 05/04/18 00:56 05/03/18 20:00 05/04/18 00:56 05/04/18 00:56 Intake & Output 05/03/18 05/04/18 05/05/18 06:59 06:59 06:59 Intake Total 50 50 Balance 50 50 Weight 40.9 kg General appearance: PRESENT: no acute distress Head exam: PRESENT: atraumatic Eye exam: PRESENT: PERRLA Mouth exam: PRESENT: moist Neck exam: ABSENT: carotid bruit, JVD, lymphadenopathy, thyromegaly Respiratory exam: PRESENT: clear to auscultation garret. ABSENT: rales, rhonchi, wheezes Cardiovascular exam: PRESENT: RRR. ABSENT: diastolic murmur, rubs, systolic mu rmur GI/Abdominal exam: PRESENT: normal bowel sounds, soft. ABSENT: distended, guarding, mass, organolmegaly, rebound, tenderness Extremities exam: PRESENT: full ROM. ABSENT: calf tenderness, clubbing, pedal edema Neurological exam: PRESENT: alert, awake, oriented to person, oriented to place, oriented to time, oriented to situation, CN II-XII grossly intact. ABSENT: motor sensory deficit Psychiatric exam: PRESENT: appropriate affect, normal mood. ABSENT: homicidal ideation, suicidal ideation Results Laboratory Results: 05/04/18 06:27 05/04/18 06:27 05/04/18 05/04/18 06:27 06:27 WBC 5.9 RBC 4.30 Hgb 7.9 L Hct 25.8 L MCV 60 L MCH 18.3 L MCHC 30.5 L RDW 17.3 H Plt Count 292 Seg Neutrophils % 59.1 Lymphocytes % 25.7 Monocytes % 12.8 Eosinophils % 1.3 Basophils % 1.1 Absolute Neutrophils 3.5 Absolute Lymphocytes 1.5 Absolute Monocytes 0.8 Absolute Eosinophils 0.1 Absolute Basophils 0.1 Sodium 138.7 Potassium 3.7 Chloride 105 Carbon Dioxide 22 Anion Gap 12 BUN 8 Creatinine 0.49 L Est GFR ( Amer) > 60 Est GFR (Non-Af Amer) > 60 Glucose 82 Calcium 9.0 Impressions: Pelvis Ultrasound 05/01/18 00:00 IMPRESSION: NONVISUALIZATION LEFT OVARY AND ADNEXA. OTHERWISE, UNREMARKABLE PELVIC ULTRASOUND BY TRANSABDOMINAL TECHNIQUE. Assessment & Plan - Diagnosis (1) Intractable vomiting Qualifiers: Vomiting type: cyclical vomiting Nausea presence: with nausea Qualified Code(s): G43.A1 - Cyclical vomiting, intractable Is this a current diagnosis for this admission?: Yes Plan: Possibly secondary to marijuana use or acute infection 05/04/2018-patient is receiving Phenergan every 4 hours. Still complaining of nausea no vomiting's are reported in the last 24 hours. This intractable vomiting may be secondary to marijuana use. The blood cultures initially positive for gram-negative rods gram-positive cocci gram-positive mayo repeat blood cultures are no growth. Patient is presently on Rocephin 1 g IV daily added levofloxacin 500 mg p.o. daily. (2) Protein-calorie malnutrition, severe Is this a current diagnosis for this admission?: Yes Plan: 05/04/2018-protein calorie malnutrition which is severe probably secondary to poor dietary intake. Dietary consult was requested. Patient is receiving Ensure 1 can 3 times daily. (3) Substance abuse Is this a current diagnosis for this admission?: Yes Plan: Mother told me in confidence that her daughter abuses drugs. She says she is into also the things that she cannot even begin to specify. Drug screen was positive for marijuana only on admission. HIV negative She will benefit from substance abuse counselling 05/04/2018-urine drug screen positive for marijuana. Patient denies any other drug use. HIV testing here is negative. Counseling was provided for more than 10 minutes to avoid polysubstance abuse. (4) Microcytic anemia Is this a current diagnosis for this admission?: Yes Plan: 05/04/2018 hemoglobin is 7.9. Yesterday it was 7.7. Patient is on IV fluids 75 cc/h. Patient is also having menstrual periods. Plan is to stop the IV fluids today and recheck her CBC tomorrow. pt is asymptomatic. - Time Time Spent with patient: 15-24 minutes Smoking Cessation Education: over 10 minutes Anticipated discharge: Home
[2018-05-04] MEDS: ENOXAPARIN SODIUM INJ 40 MG/0.4 ML DISP.SYRIN SUBCUT SCH (09:00)
[2018-05-04] MEDS: CEFTRIAXONE 1 GM/D5W RTU 1 GM/50 ML RTUPB IV SCH (09:00)
[2018-05-04] MEDS: FAMOTIDINE 20 MG TABLET PO SCH ×2 (10:00→21:56)
[2018-05-04] MEDS: LEVOFLOXACIN 500 MG TABLET PO SCH (11:32)
[2018-05-05] MEDS: PROMETHAZINE HCL INJ 25 MG/1 ML VIAL IV PRN (03:16)
[2018-05-05 07:58] VITALS: BP 95/54
[2018-05-05 08:11] LABS: ABSOLUTE EOSINOPHILS # (AUTO) 0.1 10^3/uL (0.0-0.6); ABSOLUTE LYMPHOCYTES (AUTO) 1.6 10^3/uL (0.5-4.7); ABSOLUTE MONOCYTES (AUTO) 0.7 10^3/uL (0.1-1.4); ABSOLUTE NEUT (AUTO) 3.2 10^3/uL (1.7-8.2); BASOPHILS % (AUTO) 0.6 % (0-2); EOSINOPHILS % (AUTO) 2.3 % (0-6); HEMATOCRIT 28.9 % (36.0-47.0); HEMOGLOBIN 8.8 g/dL (12.0-15.5); LYMPHOCYTES % (AUTO) 28.3 % (13-45); MEAN CORPUSCULAR HEMOGLOBIN 18.6 pg (27.0-33.4); MEAN CORPUSCULAR HGB CONC 30.4 g/dL (32.0-36.0); MEAN CORPUSCULAR VOLUME 61 fl (80-97); MONOCYTES % (AUTO) 11.9 % (3-13); PLATELET COUNT 284 10^3/uL (150-450); RED BLOOD COUNT 4.74 10^6/uL (3.72-5.28); RED CELL DISTRIBUTION WIDTH 17.5 % (11.5-14.0); SEGMENTED NEUTROPHILS % (AUTO) 56.9 % (42-78); TOTAL CELLS COUNTED % (AUTO) 100 %; WHITE BLOOD COUNT 5.6 10^3/uL (4.0-10.5)
[2018-05-05 08:22] LABS: ALANINE AMINOTRANSFERASE 18 U/L (9-52); ALBUMIN 4.7 g/dL (3.5-5.0); ALKALINE PHOSPHATASE 47 U/L (38-126); ANION GAP 9 (5-19); ASPARTATE AMINO TRANSFERASE 13 U/L (14-36); BILIRUBIN,DIRECT 0.2 mg/dL (0.0-0.4); BILIRUBIN,TOTAL 0.4 mg/dL (0.2-1.3); BLOOD UREA NITROGEN 3 mg/dL (7-20); CALCIUM 9.7 mg/dL (8.4-10.2); CARBON DIOXIDE 26 mmol/L (22-30); CHLORIDE 105 mmol/L (98-107); GLUCOSE 117 mg/dL (75-110); POTASSIUM 3.6 mmol/L (3.6-5.0); SODIUM 140.4 mmol/L (137-145); TOTAL PROTEIN 7.3 g/dL (6.3-8.2)
[2018-05-05 09:15] LABS: ANISOCYTOSIS 2+; HYPOCHROMASIA 2+; OVALOCYTES 2+; PLATELET COMMENT ADEQUATE; POIKILOCYTOSIS 2+; POLYCHROMASIA 2+; SCHISTOCYTES SLIGHT; TOXIC GRANULATION SLIGHT
--- NOTE | 2018-05-05 10:37 | PDOC DISCHARGE SUMMARY ---
General - Admit/Disc Date/PCP Admission Date/Primary Care Provider: 04/30/18 11:32 Discharge Date: 05/05/18 - Discharge Diagnosis (1) Intractable vomiting Is this a current diagnosis for this admission?: Yes Summary: 05/05/2018-patient was admitted with intractable nausea and vomitings probably secondary to marijuana abuse. No complications while she was in the hospital. CT abdomen and pelvis was negative for acute pathology. She was treated with IV fluids and IV Phenergan in association with IV Zofran during the hospital stay. Patient is comfortable in the bed communicating very well. Expressing desire to go home. I wrote the prescriptions for Phenergan 25 mg p.o. every 6 hours as needed for 1 week. Patient is also requesting famotidine also gave the prescription for famotidine for 1 month. (2) Protein-calorie malnutrition, severe Is this a current diagnosis for this admission?: Yes Summary: 05/04/2018-protein calorie malnutrition which is severe probably secondary to poor dietary intake. Dietary consult was requested. Patient is receiving Ensure 1 can 3 times daily. 05/05/2018-8 petite female. Dietary consult was done with concern about protein calorie malnutrition. Recommendation was to start on Ensure 1 can p.o. 3 times daily. Patient says she will continue taking Ensure as an outpatient. She does not want any prescription. (3) Substance abuse Is this a current diagnosis for this admission?: Yes Summary: Mother told me in confidence that her daughter abuses drugs. She says she is into also the things that she cannot even begin to specify. Drug screen was positive for marijuana only on admission. HIV negative She will benefit from substance abuse counselling 05/04/2018-urine drug screen positive for marijuana. Patient denies any other drug use. HIV testing here is negative. Counseling was provided for more than 10 minutes to avoid polysubstance abuse. 05/05/2018-urine drug screen is positive for marijuana. HIV testing is negative. Discussed in length with the patient about avoiding substance abuse. Patient understood and verbalized response. (4) Microcytic anemia Is this a current diagnosis for this admission?: Yes Summary: 05/04/2018 hemoglobin is 7.9. Yesterday it was 7.7. Patient is on IV fluids 75 cc/h. Patient is also having menstrual periods. Plan is to stop the IV fluids today and recheck her CBC tomorrow. pt is asymptomatic. 05/03/2018-hemoglobin today is 8.8. Improved from a 7.7. This drop in hemoglobin probably secondary to IV fluids. Think patient has anemia of chronic disease. Patient wants to take [id number] iron supplementation. I encouraged her to do so. - Additional Information Resuscitation Status: Full Code Discharge Diet: As Tolerated Discharge Activity: Activity As Tolerated Prescriptions: Famotidine [Pepcid 20 mg Tablet] 20 mg PO Q12 #60 tablet Levofloxacin [Levaquin 500 mg Tablet] 500 mg PO DAILY #5 tablet Promethazine HCl [Phenergan 25 mg Tablet] 25 mg PO Q6HP PRN #20 tablet PRN Reason: Home Medications: Famotidine [Pepcid 20 mg Tablet] 20 mg PO Q12 #60 tablet 05/05/18 Levofloxacin [Levaquin 500 mg Tablet] 500 mg PO DAILY #5 tablet 05/05/18 Promethazine HCl [Phenergan 25 mg Tablet] 25 mg PO Q6HP PRN #20 tablet 05/05/18 History of Present Illness History of Present Illness: SANJAY BUTLER is a 18 year old female with complaints of intractable nausea and vomiting. She also complained of abdominal pain. Patient thinks that she may have a ruptured ovarian cyst she says she has had one before. She is noted to have hematuria however patient is currently on her.. She denies any prior history of kidney stones. She denies any fever or diarrhea chest pain or any other pertinent symptoms. Patient also found to have positive marijuana on her drug screen Physical Exam Vital Signs: Temp Pulse Resp BP Pulse Ox 98.9 F 77 18 95/54 L 97 05/05/18 07:57 05/05/18 07:57 05/05/18 07:57 05/05/18 07:57 05/05/18 07:57 Intake & Output 05/04/18 05/05/18 05/06/18 06:59 06:59 06:59 Intake Total 50 200 Balance 50 200 Weight 40.9 kg 42.2 kg General appearance: PRESENT: other - thin petite female not in distress. Head exam: PRESENT: atraumatic Eye exam: PRESENT: PERRLA Mouth exam: PRESENT: moist, tongue midline Neck exam: ABSENT: carotid bruit, JVD, lymphadenopathy, thyromegaly Respiratory exam: PRESENT: decreased breath sounds Cardiovascular exam: PRESENT: RRR. ABSENT: diastolic murmur, rubs, systolic murmur GI/Abdominal exam: PRESENT: normal bowel sounds, soft. ABSENT: distended, guarding, mass, organolmegaly, rebound, tenderness Extremities exam: PRESENT: full ROM. ABSENT: calf tenderness, clubbing, pedal edema Neurological exam: PRESENT: alert, awake, oriented to person, oriented to place, oriented to time, oriented to situation, CN II-XII grossly intact. ABSENT: motor sensory deficit Results Laboratory Results: 05/05/18 07:37 05/05/18 07:37 05/05/18 05/05/18 07:37 07:37 WBC 5.6 RBC 4.74 Hgb 8.8 L Hct 28.9 L MCV 61 L MCH 18.6 L MCHC 30.4 L RDW 17.5 H Plt Count 284 Seg Neutrophils % 56.9 Lymphocytes % 28.3 Monocytes % 11.9 Eosinophils % 2.3 Basophils % 0.6 Absolute Neutrophils 3.2 Absolute Lymphocytes 1.6 Absolute Monocytes 0.7 Absolute Eosinophils 0.1 Absolute Basophils 0.0 Sodium 140.4 Potassium 3.6 Chloride 105 Carbon Dioxide 26 Anion Gap 9 BUN 3 L Creatinine 0.53 Est GFR ( Amer) > 60 Est GFR (Non-Af Amer) > 60 Glucose 117 H Calcium 9.7 Magnesium 2.0 Total Bilirubin 0.4 AST 13 L ALT 18 Alkaline Phosphatase 47 Total Protein 7.3 Albumin 4.7 04/30/18 03:52 Blood Blood Culture - Final NO GROWTH IN 5 DAYS 05/02/18 14:30 Clean Catch Midstream Urine Culture - Final NO GROWTH 2 DAYS Impressions: Pelvis Ultrasound 05/01/18 00:00 IMPRESSION: NONVISUALIZATION LEFT OVARY AND ADNEXA. OTHERWISE, UNREMARKABLE PELVIC ULTRASOUND BY TRANSABDOMINAL TECHNIQUE. Qualifiers - * PATIENT BEING DISCHARGED WITH ANY OF THE FOLLOWING DIAGNOSIS: No VTE patient discharged on overlapping Therapy?: Yes
[2018-05-05] MEDS: ENOXAPARIN SODIUM INJ 40 MG/0.4 ML DISP.SYRIN SUBCUT SCH (11:04)
[2018-05-05] MEDS: LEVOFLOXACIN 500 MG TABLET PO SCH (11:04)
[2018-05-05] MEDS: CEFTRIAXONE 1 GM/D5W RTU 1 GM/50 ML RTUPB IV SCH (11:04)
[2018-05-05] MEDS: FAMOTIDINE 20 MG TABLET PO SCH (11:05)
== END 2018-05-05 11:52 | disposition home or self-care (01) | DRG 102 ==
LOC: ER 23:56 → EH 04-30 06:37 → 2N 04-30 08:26 → OBSVTOIN 04-30 11:32
PROVIDERS: ADMIT Internal Medicine; ATTEND Internal Medicine
DX: G43.A1 Cyclical vomiting, in migraine, intractable (principal); E43 Unspecified severe protein-calorie malnutrition; E87.2 Acidosis; Z68.1 Body mass index [BMI] 19.9 or less, adult; D50.9 Iron deficiency anemia, unspecified; R10.9 Unspecified abdominal pain; G40.909 Epilepsy, unspecified, not intractable, without status epilepticus; E86.0 Dehydration; F12.90 Cannabis use, unspecified, uncomplicated; R31.9 Hematuria, unspecified; F31.9 Bipolar disorder, unspecified
CPT/HCPCS: 36415; 76856; 80048; 80053; 80307; 81001; 81025; 82607; 82728; 82746; 83540; 83550; 83735; 85025; 85027; 85045; 86701; 87040; 87077; 87086; 87186; 93005; 93010; 93306; 99285; J0696; J1650; J1756; J2405; J2550; J2765; J3490; J7120; S0028; S0119

== ENCOUNTER 2018-09-05 12:58 | Emergency (ER) | payer MEDICAID ==
[2018-09-05] MEDS ORDERED: IPRATROPIUM/ALBUTEROL 0.5-2.5 MG/3 ML AMPUL NEB ONE (13:55)
[2018-09-05] MEDS ORDERED: IBUPROFEN 600 MG TABLET PO ONE (14:00)
--- NOTE | 2018-09-05 14:02 | ER Document Report ---
HPI - HPI Time Seen by Provider: 09/05/18 13:49 Pain Level: 5 Notes: Patient is a 18-year-old female with no significant past medical history who presents to the ED complaining of nasal congestion/discharge, dry nonproductive cough, sore throat, fever, body ache 3 days. Patient states that she is still eating and drinking without difficulties, but does have a decreased p.o. intake. She is still urinating normally having normal bowel movements. Patient has been using some [id number] meds for symptoms. She denies any significant past medical history including cardiopulmonary history and immunocompromised conditions. Patient denies any IV drug use. Patient does admit to smoking. Patient has not been in any wooded areas or exposed any tick bite that she is aware of. Patient was evaluated in urgent care and initial onset was diagnosed with a viral illness. Denies any headache, neck pain, chest pain, palpitations, syncope, shortness of breath, wheeze, dyspnea, abdominal pain, nausea/vomiting/diarrhea, urinary retention, dysuria, hematuria, or rash. - ROS Systems Reviewed and Negative: Yes All other systems reviewed and negative - CONSTITUTIONAL Constitutional: REPORTS: Fever, Chills - EENT EENT: REPORTS: Sore Throat. DENIES: Ear Pain, Eye problems - NEURO Neurology: REPORTS: Headache. DENIES: Weakness, Vision blurred, Dizzinesss / Vertigo - CARDIOVASCULAR Cardiovascular: DENIES: Chest pain - RESPIRATORY Respiratory: REPORTS: Coughing. DENIES: Trouble Breathing - GASTROINTESTINAL Gastrointestinal: DENIES: Abdominal Pain, Black / Bloody Stools - URINARY Urinary: DENIES: Dysuria, Urgency, Frequency - REPRODUCTIVE Reproductive: DENIES: : - MUSCULOSKELETAL Musculoskeletal: DENIES: Extremity pain Past Medical History - Social History Smoking Status: Current Every Day Smoker Chew tobacco use (# tins/day): No Frequency of alcohol use: Occasional Drug Abuse: None Family History: Reviewed & Not Pertinent Patient has suicidal ideation: No Patient has homicidal ideation: No Neurological Medical History: Reports: Hx Seizures Renal/ Medical History: Denies: Hx Peritoneal Dialysis Musculoskeletal Medical History: Reports Hx Musculoskeletal Trauma - right arm and left leg Psychiatric Medical History: Reports: Hx Bipolar Disorder, Hx Depression Traumatic Medical History: Reports: Hx Fractures Past Surgical History: Reports: Hx Orthopedic Surgery - arm and leg - Immunizations Immunizations up to date: Yes Hx Diphtheria, Pertussis, Tetanus Vaccination: Yes Vertical Provider Document - CONSTITUTIONAL Agree With Documented VS: Yes Notes: PHYSICAL EXAMINATION: GENERAL: Well-appearing, well-nourished and in no acute distress. A&Ox4. Answers questions appropriately. Moves comfortably w/o notable distress HEAD: Atraumatic, normocephalic. EYES: Pupils equal round and reactive to light, extraocular movements intact, sclera anicteric, conjunctiva are normal. ENT: EAC clear b/l. TM's intact b/l without erythema, fluid, or perforation. Nares patent and with clear discharge. oropharynx mild erythema without exudates. 1+ tonsilar hypertrophy with mild erythema no exudate. No palatine shift. Uvula midline. No tongue protrusion. No drooling, hoarseness, or airway compromise. Moist mucous membranes. No sinus tenderness. NECK: Normal range of motion, supple without lymphadenopathy. No rig idity/meningismus. LUNGS: Scant wheeze bilateral lower lungs. No retractions HEART: Regular rate and rhythm without murmurs, rubs, gallops. ABDOMEN: Soft, nontender, nondistended abdomen. No guarding, no rebound. Normal bowel sounds present. No CVA tenderness bilaterally. No hepatosplenomegaly. NEUROLOGICAL: Normal speech, normal gait. PSYCH: Normal mood, normal affect. SKIN: Warm, Dry, normal turgor, no rashes or lesions noted. - INFECTION CONTROL TRAVEL OUTSIDE OF THE [place] IN LAST 30 DAYS: No Course - Re-evaluation Re-evalutation: 09/05/18 15:33 Patient is currently an afebrile, well-hydrated, 18-year-old female who presents to the ED with acute URI, suspect viral. Vitals are acceptable. PE is otherwise unremarkable. Influenza/strep, UA/hcg negative. CXR unremarkable. No other labs or imaging warranted at this time based on H&P. Patient has no significant cardiopulmonary or immunocompromised medical conditions. Patient's lungs are clear to auscultation bilaterally without tachycardia, hypoxia, or tachypnea. Patient is tolerating p.o. without any difficulties. Low suspicion for any meningitis, sepsis, peritonsillar/pharyngeal abscess, respiratory compromise, severe dehydration, or other emergent systemic condition at this time. Patient is aware this condition can change from initial presentation and she needs to monitor symptoms closely. Conservative measures otherwise for symptoms. Recheck with your PCM in 3-5 days. Return to the ED with any worsening/concerning symptoms otherwise as reviewed in discharge. Patient is in agreement. - Vital Signs Vital signs: Temp Pulse Resp BP Pulse Ox 100.9 F H 136 H 18 106/53 L 95 09/05/18 13:06 09/05/18 13:06 09/05/18 13:06 09/05/18 13:06 09/05/18 13:06 Discharge - Discharge Clinical Impression: Acute URI Condition: Stable Disposition: HOME, SELF-CARE Instructions: Upper Respiratory Illness ([facility]) Additional Instructions: Maintain adequate fluid intake tylenol/ibuprofen as needed alternating every 3 hours for fever/body ache over the counter cold medication as needed for symptoms Humidified air may help Wash your hands regularly Wear a mask when coughing F/u: with your PCM in 2-3 days for a recheck Return to the ED with any fever, altered mental status/behavior, chest pain, palpitations, syncope, headache, neck pain/stiffness, shortness of breath, chest pains, wheezing, drooling, trouble swallowing/breathing, abdominal pain, n/v/d, rash, or worsening/concerning symptoms otherwise. Forms: Smoking Cessation Education Referrals: [facility] [Provider Group] - Follow up as needed [facility] [Provider Group] - Follow up as needed
[2018-09-05 14:26] LABS: A TYPE INFLUENZA AG NEGATIVE (NEGATIVE); B INFLUENZA AG NEGATIVE (NEGATIVE)
[2018-09-05 15:24] LABS: APPEARANCE,URINE SLIGHTLY-CLOUDY; BILIRUBIN,URINE NEGATIVE (NEGATIVE); COLOR,URINE YELLOW; GLUCOSE, URINE NEGATIVE (NEGATIVE); KETONES,URINE NEGATIVE (NEGATIVE); LEUKOCYTE ESTERASE,URINE NEGATIVE (NEGATIVE); NITRITE,URINE NEGATIVE (NEGATIVE); PROTEIN,URINE NEGATIVE (NEGATIVE); UROBILINOGEN,URINE NEGATIVE mg/dL (<2.0)
--- NOTE | 2018-09-05 15:28 | RADIOLOGY REPORT (SQ) ---
EXAM DESCRIPTION: CHEST 2 VIEWS COMPLETED DATE/TIME: 09/05/2018 3:16 pm REASON FOR STUDY: cough, fever COMPARISON: 08/30/2010 EXAM PARAMETERS: NUMBER OF VIEWS: two views TECHNIQUE: Digital Frontal and Lateral radiographic views of the chest acquired. RADIATION DOSE: NA LIMITATIONS: none FINDINGS: LUNGS AND PLEURA: No opacities, masses or pneumothorax. No pleural effusion. MEDIASTINUM AND HILAR STRUCTURES: No masses or contour abnormalities. HEART AND VASCULAR STRUCTURES: Heart normal size. No evidence for failure. BONES: No acute findings. HARDWARE: None in the chest. OTHER: No other significant finding. IMPRESSION: No acute abnormality of the lungs. TECHNICAL DOCUMENTATION: JOB ID: [id number] [employer]- All Rights Reserved Reading location - IP/workstation name: [email or web address]
[2018-09-05 15:38] VITALS: BP 98/61
== END 2018-09-05 16:18 | disposition home or self-care (01) ==
LOC: ER 12:58
DX: J06.9 Acute upper respiratory infection, unspecified (principal); R09.81 Nasal congestion; R09.89 Other specified symptoms and signs involving the circulatory and respiratory systems; R05 Cough; J02.9 Acute pharyngitis, unspecified; R50.9 Fever, unspecified; M79.10 Myalgia, unspecified site; F17.200 Nicotine dependence, unspecified, uncomplicated
CPT/HCPCS: 94640; 99283; 87070; 87880; 81025; 81001; 87804; 71046; J3490; J7620

== ENCOUNTER 2019-01-09 20:03 | Emergency (ER) | payer MEDICAID ==
[2019-01-09 21:55] LABS: BACTERIA (WET MOUNT) 4+ BACTERIA SEEN; EPITHELIALS (WET MOUNT) 4+ EPITHELIALS SEEN; RBCS (WET MOUNT) FEW RBCS SEEN; T.VAGINALIS (WET MOUNT) NO TRICHOMONAS SEEN; WBCS (WET MOUNT) 1+ WBCS SEEN; YEAST (WET MOUNT) BUDDING YEAST SEEN
[2019-01-09 21:57] LABS: APPEARANCE,URINE CLEAR; BILIRUBIN,URINE NEGATIVE (NEGATIVE); COLOR,URINE YELLOW; GLUCOSE, URINE NEGATIVE (NEGATIVE); KETONES,URINE TRACE mg/dL (NEGATIVE); LEUKOCYTE ESTERASE,URINE NEGATIVE (NEGATIVE); NITRITE,URINE NEGATIVE (NEGATIVE); PROTEIN,URINE NEGATIVE (NEGATIVE)
[2019-01-10] MEDS ORDERED: FLUCONAZOLE 100 MG TABLET PO ONE (00:33)
--- NOTE | 2019-01-10 01:05 | ER Document Report ---
ED Foreign Body - General Chief Complaint: Foreign Body in Vagina Stated Complaint: FOREIGN OBJECT IN VAGINA Time Seen by Provider: 01/10/19 00:26 Notes: Patient is a 19-year-old female that comes to the emergency department for chief complaint of a tampon stuck in the vaginal canal. She states that she inserted this with tea tree oil in an attempt to treat a flareup of bacterial vaginosis that she has had. She states that she has a whitish discharge with a known smell comparable to previous bacterial vaginosis episodes. She denies pain, itching, nausea/vomiting, fever, or any other complaints. She denies any daily medications or diagnosed medical history. TRAVEL OUTSIDE OF THE [place] IN LAST 30 DAYS: No - Related Data Allergies/Adverse Reactions: No Known Allergies Allergy (Verified 09/05/18 13:06) Past Medical History - General Information source: Patient - Social History Smoking Status: Never Smoker Chew tobacco use (# tins/day): No Drug Abuse: None Lives with: Family Family History: Reviewed & Not Pertinent Patient has suicidal ideation: No Patient has homicidal ideation: No Neurological Medical History: Reports: Hx Seizures Renal/ Medical History: Denies: Hx Peritoneal Dialysis Musculoskeletal Medical History: Reports Hx Musculoskeletal Trauma - right arm and left leg Psychiatric Medical History: Reports: Hx Bipolar Disorder, Hx Depression Traumatic Medical History: Reports: Hx Fractures Past Surgical History: Reports: Hx Orthopedic Surgery - arm and leg - Immunizations Immunizations up to date: Yes Hx Diphtheria, Pertussis, Tetanus Vaccination: Yes Review of Systems - Review of Systems Constitutional: No symptoms reported EENT: No symptoms reported Cardiovascular: No symptoms reported Respiratory: No symptoms reported Gastrointestinal: No symptoms reported Genitourinary: No symptoms reported Female Genitourinary: See HPI Musculoskeletal: No symptoms reported Skin: No symptoms reported Hematologic/Lymphatic: No symptoms reported Neurological/Psychological: No symptoms reported Physical Exam - Vital signs Vitals: Temp Pulse Resp BP Pulse Ox 98.2 F 78 16 116/70 100 01/09/19 20:18 01/09/19 20:18 01/09/19 20:18 01/09/19 20:18 01/09/19 20:18 - Notes Notes: GENERAL: Patient is very thin but she is alert, talkative, well-appearing HEAD: Normocephalic, atraumatic. EYES: Pupils equal, round, and reactive to light. Extraocular movements intact. ENT: Oral mucosa moist, tongue midline. Oropharynx unremarkable. Airway patent. LUNGS: Clear to auscultation bilaterally, no wheezes, rales, or rhonchi. No respiratory distress. HEART: Regular rate and rhythm. No murmur ABDOMEN: Soft, non-tender. Non-distended. GENITOURINARY: External exam unremarkable. See procedural exam. EXTREMITIES: Moves all 4 extremities spontaneously. No edema, normal radial and dorsalis pedis pulses bilaterally. No cyanosis. BACK: no cervical, thoracic, lumbar midline tenderness. No saddle anesthesia, normal distal neurovascular exam. NEUROLOGICAL: Alert and oriented x3. Normal speech. Cranial nerves II through XII grossly intact. PSYCH: Normal affect, normal mood. SKIN: Warm, dry, normal turgor. No rashes or lesions noted. Course - Re-evaluation Re-evalutation: Retained tampon removed without complication. Urine test negative. Positive yeast noted, patient was treated with Diflucan, she was also treated with Flagyl for suspected bacterial vaginosis based on her exam and presentation. Discussed follow-up and return precautions. Patient states understanding and agreement. - Vital Signs Vital signs: Temp Pulse Resp BP Pulse Ox 98.1 F 68 18 107/80 100 01/10/19 02:30 01/10/19 02:30 01/10/19 02:30 01/10/19 02:30 01/10/19 02:30 - Laboratory Laboratory results interpreted by me: 01/09/19 21:41 Urine Ketones TRACE H Urine Urobilinogen 4.0 H Procedures - Pelvic Exam Pelvic exam Cultures obtained: No Wet prep obtained: No Herpes culture obtained: No POC sent to lab: No Foreign body removed: Yes - Intact tampon removed including string Bimanual exam performed: No Witnessed by: Kati CHAMBERS Notes: External examination of the genitals without any concerning findings. Speculum exam performed, this shows some scattered whitish discharge, there was also noted to be a string and a tampon within the lateral aspect of the vaginal canal, this was grasped with forceps and removed without difficulty or breaking. No cervical motion tenderness noted, no concerning findings noted otherwise. Discharge - Discharge Clinical Impression: Vaginal discharge Retained vaginal foreign body Qualifiers: Encounter type: initial encounter Qualified Code(s): T19.2XXA - Foreign body in vulva and vagina, initial encounter Condition: Stable Disposition: HOME, SELF-CARE Additional Instructions: Your work-up is positive for yeast, you were treated for this. The foreign body has been removed. We are treating you for suspected bacterial vaginosis as well. Follow-up with primary care. Your test is negative. Return for any concerning symptoms including vomiting, fever, developing pain, or any other concerning symptoms. Prescriptions: Metronidazole [Flagyl 500 mg Tablet] 500 mg PO BID 7 Days #14 tablet
[2019-01-10 03:39] VITALS: BP 107/80
== END 2019-01-10 02:50 | disposition home or self-care (01) ==
LOC: ER 20:03
DX: T19.2XXA Foreign body in vulva and vagina, initial encounter (principal); X58.XXXA Exposure to other specified factors, initial encounter; N89.8 Other specified noninflammatory disorders of vagina; B37.9 Candidiasis, unspecified
CPT/HCPCS: 87210; 81025; 81001; J3490; 99283